=== PATIENT | male | born 1995 | race American Indian/Alaskan Native ===

== ENCOUNTER 2016-08-11 20:55 | Emergency (ER) | payer OTHER ==
[2016-08-12] MEDS ORDERED: MOTRIN PO ONE (01:33)
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
[2016-08-12 03:13] VITALS: BP 132/81
== END 2016-08-12 03:11 | disposition home or self-care (01) ==
LOC: ED 20:55
DX: M25.552 Pain in left hip (principal); V49.49XA Driver injured in collision with other motor vehicles in traffic accident, initial encounter; Y93.9 Activity, unspecified; Y92.9 Unspecified place or not applicable; Y99.9 Unspecified external cause status
CPT/HCPCS: 99283

== ENCOUNTER 2018-10-08 21:05 | Emergency (ER) | payer SELFPAY ==
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
[2018-10-09] MEDS ORDERED: IBUPROFEN PO ONE (00:39)
[2018-10-09 01:22] VITALS: BP 104/64
== END 2018-10-09 01:35 | disposition home or self-care (01) ==
LOC: ED 21:05
DX: S39.012A Strain of muscle, fascia and tendon of lower back, initial encounter (principal); Z88.1 Allergy status to other antibiotic agents; Z90.49 Acquired absence of other specified parts of digestive tract; V87.7XXA Person injured in collision between other specified motor vehicles (traffic), initial encounter; Y93.89 Activity, other specified; Y92.488 Other paved roadways as the place of occurrence of the external cause; Y99.8 Other external cause status
CPT/HCPCS: 99282

== ENCOUNTER 2019-04-23 13:01 | Emergency (ER) | payer SELFPAY ==
--- NOTE | 2019-04-23 13:16 | Event Note ---
ED Screening Note Date of service: 04/23/19 Time: 13:13 ED Screening Note: This is a 23 y.o. M. that presents to the ER with left knee for 1 day. Patient states he slipped and fell yesterday. PMH of seizure This initial assessment/diagnostic orders/clinical plan/treatment(s) is/are subject to change based on patients health status, clinical progression and re- assessment by fellow clinical providers in the ED. Further treatment and workup at subsequent clinical providers discretion. Patient/guardian urged not to elope from the ED as their condition may be serious if not clinically assessed and managed. Initial orders include: XR of left knee
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
[2019-04-23] MEDS ORDERED: IBUPROFEN 800 MG TAB PO ONE (15:31)
[2019-04-23] MEDS ORDERED: IBUPROFEN 800 MG TAB ONE (15:34)
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
[2019-04-23 17:57] VITALS: BP 125/78
== END 2019-04-23 17:57 | disposition home or self-care (01) ==
LOC: ED 13:01
DX: S86.912A Strain of unspecified muscle(s) and tendon(s) at lower leg level, left leg, initial encounter (principal); Z90.49 Acquired absence of other specified parts of digestive tract; Z79.899 Other long term (current) drug therapy; Z88.1 Allergy status to other antibiotic agents; W01.0XXA Fall on same level from slipping, tripping and stumbling without subsequent striking against object, initial encounter; Y93.89 Activity, other specified; Y92.89 Other specified places as the place of occurrence of the external cause; Y99.8 Other external cause status

== ENCOUNTER 2020-07-22 05:48 | Emergency (ER) | payer SELFPAY ==
[2020-07-22 06:21] VITALS: BP 123/82
--- NOTE | 2020-07-22 07:16 | XRay Report ---
XR chest 1V ap INDICATION / CLINICAL INFORMATION: Chest Pain COMPARISON: None available. FINDINGS: SUPPORT DEVICES: None. HEART / MEDIASTINUM: No significant abnormality. LUNGS / PLEURA: Lungs are clear. Costophrenic sulci are sharp. No pneumothorax. ADDITIONAL FINDINGS: No significant additional findings. IMPRESSION: 1. No acute findings. Signer Name: Mejia Mckeon MD Signed: 07/22/2020 7:12 AM Workstation Name: [id number]
--- NOTE | 2020-07-22 07:29 | Emergency Department Report ---
ED Chest Pain HPI - General Chief Complaint: Chest Pain Stated Complaint: CHEST PAIN Time Seen by Provider: 07/22/20 07:15 Source: patient Mode of arrival: Ambulatory Limitations: No Limitations - History of Present Illness Initial Comments: This is a 24-year-old male nontoxic, well nourished in appearance, no acute signs of distress presents to the ED with c/o of right sided chest pain x1 day. Patient stated he had a sharp pain and resolved the next morning woke up and had a sharp pain and the result is again. Patient stated lasted about 30 seconds. Patient denies any radiation of pain. Patient describes pain as aching intermittently. Patient denies any upper respiratory symptoms. Patient denies any shortness of breath, hemoptysis, fever, chills, nausea, vomiting, headache, stiff neck, numbness, tingling, abdominal pain. Patient denies pleuritic chest pain. Patient denies any recent travels or long car rides. Patient denies any recent surgeries or any sick contacts. Patient stated allergies to clarithromycin. Denies any significant past medical history. MD Complaint: chest pain -: days(s) Pain Location: right chest Pain Radiation: none Severity: mild Quality: sharp Consistency: intermittent, now resolved Improves With: nothing Worsens With: nothing re: denies: nausea, vomting, diaphoresis, dyspnea, sense of impending doom Other Symptoms: denies: cough, fever, syncope, rash, acid taste in mouth, leg swelling, palpitations, burping Treatments Prior to Arrival: none Aspirin use within the Past 7 Days: (0) No - Related Data Previous Rx's Medication Instructions Recorded Last Taken Type Ibuprofen [Motrin 800 MG tab] 800 mg PO Q8HR PRN #30 tablet 08/12/16 Unknown Rx Cyclobenzaprine [Flexeril] 10 mg PO TID PRN #30 tablet 10/09/18 Unknown Rx Menthol/Camphor [[place] 1 applicatio TP QID PRN #1 tube 10/09/18 Unknown Rx Ointment] Naproxen [Naprosyn TAB] 500 mg PO BID PRN #30 tablet 10/09/18 Unknown Rx Naproxen 500 mg PO Q12H PRN #20 tablet 04/23/19 Unknown Rx Allergies Allergy/AdvReac Type Severity Reaction Status Date / Time clarithromycin [From Biaxin] Allergy Swelling Verified 04/23/19 13:05 Heart Score - HEART Score History: Slightly suspicious EKG: Normal Age: < 45 Risk factors: No known risk factors Troponin: < normal limit HEART Score: 0 ED Review of Systems ROS: Stated complaint: CHEST PAIN Other details as noted in HPI Comment: All other systems reviewed and negative Constitutional: denies: chills, fever Eyes: denies: eye pain, eye discharge, vision change ENT: denies: ear pain, throat pain Respiratory: denies: cough, shortness of breath, wheezing Cardiovascular: chest pain. denies: palpitations, dyspnea on exertion, orthopnea, edema, syncope, paroxysmal nocturnal dyspnea Endocrine: no symptoms reported Gastrointestinal: denies: abdominal pain, nausea, diarrhea Genitourinary: denies: urgency, dysuria Musculoskeletal: denies: back pain, joint swelling, arthralgia Skin: denies: rash, lesions Neurological: denies: headache, weakness, paresthesias Psychiatric: denies: anxiety, depression Hematological/Lymphatic: denies: easy bleeding, easy bruising ED Past Medical Hx - Past Medical History Previous Medical History?: Yes Hx Seizures: Yes (Pt stopped taking his Keppra 5 years ago) - Surgical History Past Surgical History?: Yes Hx Appendectomy: Yes - Social History Smoking Status: Never Smoker - Medications Home Medications: Home Medications Medication Instructions Recorded Confirmed Last Taken Type Ibuprofen [Motrin 800 MG tab] 800 mg PO Q8HR PRN #30 tablet 08/12/16 Unknown Rx Cyclobenzaprine [Flexeril] 10 mg PO TID PRN #30 tablet 10/09/18 Unknown Rx Menthol/Camphor [[place] 1 applicatio TP QID PRN #1 tube 10/09/18 Unknown Rx Ointment] Naproxen [Naprosyn TAB] 500 mg PO BID PRN #30 tablet 10/09/18 Unknown Rx Naproxen 500 mg PO Q12H PRN #20 tablet 04/23/19 Unknown Rx ED Physical Exam - General Limitations: No Limitations General appearance: alert, in no apparent distress - Head Head exam: Present: atraumatic, normocephalic - Eye Eye exam: Present: normal appearance - Neck Neck exam: Present: normal inspection, full ROM - Respiratory Respiratory exam: Present: normal lung sounds bilaterally. Absent: respiratory distress, wheezes, rales, rhonchi, stridor, chest wall tenderness, accessory muscle use, decreased breath sounds, prolonged expiratory - Cardiovascular Cardiovascular Exam: Present: regular rate, normal rhythm, normal heart sounds. Absent: bradycardia, tachycardia, irregular rhythm, systolic murmur, diastolic murmur, rubs, gallop - GI/Abdominal GI/Abdominal exam: Present: soft. Absent: distended, tenderness - Extremities Exam Extremities exam: Present: normal inspection, full ROM - Back Exam Back exam: Present: normal inspection, full ROM. Absent: tenderness, CVA tender ness (R), CVA tenderness (L), muscle spasm, paraspinal tenderness, vertebral tenderness, rash noted - Neurological Exam Neurological exam: Present: alert, oriented X3, normal gait - Psychiatric Psychiatric exam: Present: normal affect, normal mood - Skin Skin exam: Present: warm, dry, intact, normal color. Absent: rash ED Course Vital Signs 07/22/20 07/22/20 06:11 06:21 Temperature 98.7 F Pulse Rate 63 Respiratory 20 Rate Blood Pressure 123/82 O2 Sat by Pulse 99 Oximetry - Reevaluation(s) Reevaluation #1: 07/22/20 07:27 Patient is speaking in full sentences with no signs of distress noted. CAMERON score - Cameron Score Age > 65: (0) No Aspirin use within the Past 7 Days: (0) No 3 or more CAD Risk Factors: (0) No 2 or more Angina events in past 24 hrs: (0) No Known CAD with more than 50% Stenosis: (0) No Elevated Cardiac Markers: (0) No ST Deviation Greater than 0.5mm: (0) No CAMERON Score: 0 ED Medical Decision Making - Lab Data Result diagrams: 07/22/20 07:25 07/22/20 07:25 Lab Results 07/22/20 07/22/20 Range/Units 07:25 07:25 WBC 6.2 (4.5-11.0) K/mm3 RBC 5.34 H (3.65-5.03) M/mm3 Hgb 15.9 H (11.8-15.2) gm/dl Hct 45.2 (35.5-45.6) % MCV 85 (84-94) fl MCH 30 (28-32) pg MCHC 35 H (32-34) % RDW 14.0 (13.2-15.2) % Plt Count 255 (140-440) K/mm3 Lymph % (Auto) 38.0 H (13.4-35.0) % [place] % (Auto) 8.4 H (0.0-7.3) % Eos % (Auto) 1.8 (0.0-4.3) % Baso % (Auto) 0.8 (0.0-1.8) % Lymph # (Auto) 2.4 (1.2-5.4) K/mm3 [place] # (Auto) 0.5 (0.0-0.8) K/mm3 Eos # (Auto) 0.1 (0.0-0.4) K/mm3 Baso # (Auto) 0.0 (0.0-0.1) K/mm3 Seg Neutrophils % 51.0 (40.0-70.0) % Seg Neutrophils # 3.2 (1.8-7.7) K/mm3 Sodium 139 (137-145) mmol/L Chloride 105.3 (98-107) mmol/L Carbon Dioxide 28 (22-30) mmol/L Anion Gap 10 mmol/L BUN 10 (9-20) mg/dL Creatinine 0.9 (0.8-1.3) mg/dL Estimated GFR > 60 ml/min BUN/Creatinine Ratio 11 % Glucose 104 H (75-100) mg/dL Calcium 9.2 (8.4-10.2) mg/dL Total Bilirubin 0.40 (0.1-1.2) mg/dL AST 18 (5-40) units/L ALT 18 (7-56) units/L Alkaline Phosphatase 61 (35-129) units/L Troponin T < 0.010 (0.00-0.029) ng/mL Total Protein 7.0 (6.3-8.2) g/dL Albumin 4.3 (3.9-5) g/dL Albumin/Globulin Ratio 1.6 % - EKG Data 07/22/20 08:16 Normal sinus rhythm at [address] or T wave abnormalities. Reviewed and signed by - Radiology Data XR chest 1V ap INDICATION / CLINICAL INFORMATION: Chest Pain COMPARISON: None available. FINDINGS: SUPPORT DEVICES: None. HEART / MEDIASTINUM: No significant abnormality. LUNGS / PLEURA: Lungs are clear. Costophrenic sulci are sharp. No pneumothorax. ADDITIONAL FINDINGS: No significant additional f indings. IMPRESSION: 1. No acute findings. Signer Name: Mejia Mckeon MD Signed: 07/22/2020 6:12 AM Workstation Name: [id number] - Medical Decision Making This is a 24-year-old male that presents with atypical chest pain. Patient is stable and was examined by me. CAMERON and HEART score 0 pints. PERC score for DVT/SVT/PE 0 points. EKG normal sinus rhythm with no significant changes in ST. Chest xray dictated by the radiologist. PAtient is notified of the Xray report with no questions noted. Labs within normal limits. Negative troponin. Currently in ER patient is asymptomatic. 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 At time of discharge, the patient does not seem toxic or ill in appearance. No acute signs of distress noted. Patient agrees to discharge treatment plan of care. No further questions noted by the patient. Critical care attestation.: If time is entered above; I have spent that time in minutes in the direct care of this critically ill patient, excluding procedure time. 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 Referrals: SARAH ADAMS MD [Primary Care Provider] - 3-5 Days GYPSY WHITMORE MD [Staff Physician] - 2-3 Days EV ARAMBULA MD [Staff Physician] - 2-3 Days Forms: Work/School Release Form(ED) Time of Disposition: 08:17
[2020-07-22 07:48] LABS: Basophils % (Auto) 0.8 % (0.0-1.8); Eosinophils # (Auto) 0.1 K/mm3 (0.0-0.4); Eosinophils % (Auto) 1.8 % (0.0-4.3); Hematocrit 45.2 % (35.5-45.6); Hemoglobin 15.9 gm/dl (11.8-15.2); Lymphocytes # (Auto) 2.4 K/mm3 (1.2-5.4); Mean Corpuscular HGB Conc 35 % (32-34); Mean Corpuscular Volume 85 fl (84-94); Monocytes # (Auto) 0.5 K/mm3 (0.0-0.8); Monocytes % (Auto) 8.4 % (0.0-7.3); Platelet Count 255 K/mm3 (140-440); Red Blood Count 5.34 M/mm3 (3.65-5.03)
[2020-07-22 08:05] LABS: Alanine Aminotransferase 18 units/L (7-56); Albumin 4.3 g/dL (3.9-5); BUN/Creatinine Ratio 11; Blood Urea Nitrogen 10 mg/dL (9-20); Calcium 9.2 mg/dL (8.4-10.2); Hemolysis Index 29
== END 2020-07-22 08:34 | disposition home or self-care (01) ==
LOC: ED 05:48
DX: R07.89 Other chest pain (principal); Z86.69 Personal history of other diseases of the nervous system and sense organs; Z88.8 Allergy status to other drugs, medicaments and biological substances; Z79.899 Other long term (current) drug therapy; Z90.49 Acquired absence of other specified parts of digestive tract
CPT/HCPCS: 36415; 71045; 80053; 84484; 85025; 93005